=== PATIENT | male | born 1955 | race Caucasian/White ===

== ENCOUNTER 2019-08-22 06:09 | Day surgery (SDC) | payer MEDICARE, MEDICAID ==
[~2019-08-22] VITALS: Ht 182.9 cm; Wt 120.7 kg
[~2019-08-22 06:09] MED LIST: B-122500 PO; CIAL20TA PO; ENAL20TA PO; FERR325T3 PO; FLOM0.4C39 PO; IMBR1CAP PO; LIDOCAINE 1% MDV 20ML VIAL SQ PRN; LR 1,000 ML IV ONE; MULTCAP PO; OMEP40CA97 PO; ceFAZolin SOD 1 GM in D5W MINI-BAG PLUS 50 ML IV ONE; ceFAZolin SOD 2 GM in IV 1 EA IV ONE
[2019-08-22] MEDS ORDERED: BACITRACIN OINT 30GM As Ordered ONE (06:43)
[2019-08-22] MEDS ORDERED: BUPIVACAINE HCL 0.25% 30 ML VIAL As Ordered ONE (06:43)
[2019-08-22] MEDS ORDERED: MIDAZOLAM INJ 2 MG/2 ML VIAL (J2250) As Ordered ONE (07:48)
[2019-08-22] MEDS ORDERED: dexameTHASONE 4 MG/ML 1ML VIAL (J1100) As Ordered ONE (07:48)
[2019-08-22] MEDS ORDERED: fentaNYL 250 MCG/5 ML INJECTION (J3010) As Ordered ONE (07:48)
[2019-08-22] MEDS ORDERED: METOCLOPRAMIDE INJ 10MG/2ML VIAL (J2765) As Ordered ONE (07:48)
[2019-08-22] MEDS ORDERED: LIDOCAINE 2% INJ 100 MG/5 ML SDV (FOR ANES.) As Ordered ONE (07:48)
[2019-08-22] MEDS ORDERED: ONDANSETRON 4MG/2ML VIAL (J2405) As Ordered ONE (07:48)
[2019-08-22] MEDS ORDERED: propofoL 200 MG/20 ML VIAL As Ordered ONE (07:48)
[2019-08-22] MEDS: LIDOCAINE 1% SDV INJ 30 ML VIAL As Ordered ONE ×2 (09:10→09:20)
--- NOTE | 2019-08-22 09:43 | ROOPDOC ---
[facility] Report Of Operation Report of Operation DATE OF PROCEDURE: 08/22/19 PREPROCEDURE DIAGNOSIS: Bilateral hydroceles. POSTPROCEDURE DIAGNOSIS: Bilateral hydroceles. PROCEDURE: Bilateral hydrocelectomies. SURGEON: Blake Mars MD BIOPHYSICS PROFESSOR: None. ANESTHESIA: General. OPERATIVE INDICATIONS: This is a 64-year-old male with bilateral hydroceles. He was brought to the operating room today for the above listed procedure. DESCRIPTION OF PROCEDURE: The patient was brought to the operating room and general anesthesia was induced. Prophylactic antibiotics were infused. He was then placed in a supine position in preparation for the procedure. At this point, an approximately 5 cm transverse incision was made over the right hemiscrotum. I then dissected down to the scrotal wall layers using electrocautery. The testicle and large hydrocele were then delivered out by the right hemiscrotum. The tunica vaginalis was then opened and a large amount of serous fluid drained out. I then removed the hydrocele sac using electrocautery. I then oversewed the edges of the hydrocele sac using a running 3-0 Vicryl suture. Once that was done, I checked for hemostasis. Any small bleeders were controlled with electrocautery. Once there was good hemostasis, I irrigated the wound using saline and then the testicle was delivered back inside the right hemiscrotum in its normal anatomic position. The dartos was then closed with a running 3-0 Vicryl suture. The skin was closed with interrupted 2-0 chromic suture. Once that was done, I turned my attention to the left side. A 4 cm transverse incision was made over the left hemiscrotum. Of note the hydrocele on the left was considerably smaller than the one on the right side. I then dissected down through the scrotal wall layers using electrocautery. The testicle was then delivered outside the left hemiscrotum. The tunica vaginalis was then opened and then the hydrocele sac was completely excised using electrocautery. I oversewed the edges of the hydrocele sac using a running 3-0 Vicryl suture. At this point, any areas of bleeding were controlled with electrocautery. The left hemiscrotum was then irrigated out and then the testicle was delivered back inside the left hemiscrotum in its normal anatomic position. I then closed the dartos with a running 3-0 Vicryl suture. The skin was closed with 2-0 chromic interrupted sutures. At this point, Bacitracin ointment was applied and dressings were applied and this marked conclusion of the procedure. The patient was then awakened from anesthesia and transported to the recovery room in stable condition. ESTIMATED BLOOD LOSS: 10 mL. COMPLICATIONS: None. SPECIMENS: Right and left hydrocele sacs. PLAN: The patient will followup in the clinic in a few weeks for postoperative visit. BLAKE MARS MD Aug 22, 2019 09:43
[2019-08-22] MEDS ORDERED: HYDROMORPHONE HCL 0.5 MG/ 0.5 ML SYRINGE (J1170 PER 1) IV PRN (09:45)
[2019-08-22] MEDS ORDERED: LR 1,000 ML IV SCH (09:45)
[2019-08-22] MEDS ORDERED: oxyCODONE 5MG TAB PO PRN (09:45)
[2019-08-22] MEDS ORDERED: ONDANSETRON 4MG/2ML VIAL (J2405) IV PRN (09:45)
[2019-08-22] MEDS ORDERED: PERCOCET 5MG/325MG TAB PO PRN (09:45)
[2019-08-22] MEDS: fentaNYL 100 MCG/2 ML INJECTION (J3010) IV PRN ×4 (09:45→10:00)
[2019-08-22 12:55] VITALS: BP 133/76
== END 2019-08-22 13:00 | disposition home or self-care (01) ==
LOC: M SDC 06:09
PROVIDERS: ATTEND Urology
DX: N43.3 Hydrocele, unspecified (principal); I10 Essential (primary) hypertension; K21.9 Gastro-esophageal reflux disease without esophagitis; J44.9 Chronic obstructive pulmonary disease, unspecified; Z79.899 Other long term (current) drug therapy; Z87.891 Personal history of nicotine dependence; C91.Z1 Other lymphoid leukemia, in remission
CPT/HCPCS: 55041; 88302; J0690; J1100; J2250; J2405; J2765; J3010